=== PATIENT | female | born 1985 ===

== ENCOUNTER → 2016-05-21 | Outpatient (CLI) | payer OTHER ==
--- NOTE | 2016-05-21 18:45 | DI ---
History: Abdominal pain. Procedure: The study is performed from the heart to the umbilical level in the presence of 95 cc [id number]. Sagittal and coronal reconstruction from the data set. Dose: CT DI 32.1, DLP 1308.6 Prior study: None. Findings: The appendix is not visualized. There is a large amount of retained fecal matter throughout colon particularly on the right side. Gallbladder has been resected. Minor fatty infiltration of the liver. No hepatic mass. No splenomegal y. Pancreas unremarkable. Both adrenal glands normal. Both kidneys function without obstruction; no retroperitoneal or retrocrural lymphadenopathy present Impression: Prior cholecystectomy Mild fatty infiltration of liver. No acute inflammatory process identified. Moderate fecal retention
== END ==
LOC: CT 07:38
PROVIDERS: ATTEND Nurse Practitioner Family
DX: R10.84 Generalized abdominal pain (principal); K76.0 Fatty (change of) liver, not elsewhere classified
CPT/HCPCS: 74160